=== PATIENT | female | born 1945 ===

== ENCOUNTER 2018-04-18 11:44 | Outpatient (CLI) | payer OTHER ==
[~2018-04-18] VITALS: Ht 160 cm; Wt 68.9 kg
== END 2018-04-18 12:00 | disposition home or self-care (01) ==
LOC: OFIC 805 11:44
DX: J32.8 Other chronic sinusitis (principal); R51 Headache; R09.81 Nasal congestion

== ENCOUNTER 2018-09-07 12:54 | Outpatient (CLI) | payer OTHER ==
[~2018-09-07] VITALS: Ht 152.4 cm; Wt 69.9 kg
== END 2018-09-07 13:15 | disposition home or self-care (01) ==
LOC: OFIC 805 12:54
DX: R09.81 Nasal congestion (principal); G44.221 Chronic tension-type headache, intractable; J30.89 Other allergic rhinitis

== ENCOUNTER 2018-12-26 09:47 | Outpatient (CLI) | payer OTHER ==
[~2018-12-26] VITALS: Ht 152.4 cm; Wt 68.9 kg
== END 2018-12-26 10:15 | disposition home or self-care (01) ==
LOC: OFIC 805 09:47
DX: G44.89 Other headache syndrome (principal); J32.8 Other chronic sinusitis; R09.81 Nasal congestion; J30.89 Other allergic rhinitis

== ENCOUNTER 2019-02-01 13:55 | Outpatient (CLI) | payer OTHER ==
[~2019-02-01] VITALS: Ht 160 cm; Wt 69.9 kg
== END 2019-02-01 14:10 | disposition home or self-care (01) ==
LOC: OFIC 805 13:55
DX: G44.221 Chronic tension-type headache, intractable (principal); R09.81 Nasal congestion; J30.89 Other allergic rhinitis

== ENCOUNTER 2019-10-04 14:46 | Outpatient (CLI) | payer OTHER ==
[~2019-10-04] VITALS: Ht 152.4 cm; Wt 68.0 kg
== END 2019-10-04 17:18 | disposition home or self-care (01) ==
LOC: OFIC 805 14:46
DX: J30.89 Other allergic rhinitis (principal); J32.8 Other chronic sinusitis; G44.89 Other headache syndrome; R09.81 Nasal congestion
CPT/HCPCS: 99213; G0463

== ENCOUNTER 2020-08-14 09:24 | Outpatient (CLI) | payer OTHER | END 2020-08-14 18:02 | disposition home or self-care (01) | LOC: OFIC 805 09:24 | PROVIDERS: ATTEND Otolaryngology | DX: J30.89 Other allergic rhinitis (principal); R09.81 Nasal congestion; G44.89 Other headache syndrome; J32.8 Other chronic sinusitis; K21.9 Gastro-esophageal reflux disease without esophagitis ==